=== PATIENT | female | born 2000 | race Caucasian/White ===

== ENCOUNTER 2023-09-30 12:41 | Emergency (ER) | payer BC, SELFPAY ==
[2023-09-30 12:42] VITALS: BP 130/90
--- NOTE | 2023-09-30 13:13 | ED.GENMED ---
History of Present Illness
General
Chief Complaint: Musculo-Skeletal Complaint
Source: patient
Exam Limitations: none
Time Seen by Provider: 09/30/23 13:09
Travel History
Have you had any contact with someone who has COVID-19?: No
Do you have any symptoms of coronavirus? Fever > 100 degrees, chills, cough, shortness of breath, sore throat, loss of taste or smell, muscle aches, or headache?: No
History of Present Illness
History of Present Illness:
See MDM
Past History
Past History
ED Past Medical History: None
ED Past Surgical History: None and Orthopedic
Social History
Tobacco: Non-smoker
Alcohol: None
Phy Exam
Physical Exam
Physical Exam:
See MDM
Course
Orders/Labs/Results
Orders:
Orders
09/30/23 12:46
Ankle, Right 3 view CR [CR Ankle - Right Min 3 Views *] Urgent
Comment:
Reason For Exam: injury
09/30/23 12:47
Foot, Right 3 View [CR Foot - Right Min 3 Views] Urgent
Comment:
Reason For Exam: injury
09/30/23 13:12
Acetaminophen [Tylenol] 650 mg PO NOW STA
Vital Signs
Initial and Last Documented VS:
Initial Vital Signs
Temp Pulse Resp BP Pulse Ox
98 F 93 16 130/90 98
09/30/23 12:42 09/30/23 12:42 09/30/23 12:42 09/30/23 12:42 09/30/23 12:42
Last Documented Vital Signs
Temp Pulse Resp BP Pulse Ox
98 F 93 16 130/90 98
09/30/23 12:42 09/30/23 12:42 09/30/23 12:42 09/30/23 12:42 09/30/23 12:42
MDM/Problems Addressed
Differential Diagnosis Includes:
HPI and MDM Narrative:
23-year-old female presenting with right ankle and foot pain. Patient is a teacher at a school. Child was about to fall off the monkey bars and she reached and grabbed her and she twisted her ankle while doing so. She believes she heard a pop.
She is having trouble weightbearing
Given the pain to lateral malleolus and base of fifth metatarsal, will obtain x-rays
Physical exam
General: Well appearing and non-toxic
HEENT: protecting airway
Neck: appears supple
CV: No evidence of cyanosis
Resp: No accessory muscle use
Abd: Non-distended
Extremities: Swelling and tenderness to right lateral malleolus. Tenderness to base of fifth metatarsal. Distal extremity neurovascular intact
Neuro: alert
Psych: Normal affect
Skin: Intact
Problems Addressed including Acute and Chronic Conditions affecting care:
1. Foot and ankle injury
Acuity: acute
Prognosis: stable
Details: Will obtain x-rays to rule out fracture. She took Motrin prior to arrival. Will give Tylenol
Updates
No obvious fracture on x-ray. Will give Roger wrap and crutches and discussed follow-up with podiatry if symptoms persist
Differential Diagnosis (but not limited to): Base of fifth metatarsal fracture, Ankle sprain, avulsion fracture
Testing considered: Tib/fib x-ray
Drug therapy (if applicable): OTC meds, please see d/c instruction regarding Rx drugs
Amount and/or Complexity of Data Reviewed
Clinical info obtained from: Patient
External data reviewed: N/A
Labs I independently reviewed (but not limited to): N/A
Radiology: X-ray independently reviewed: Ankle and foot x-ray negative for fracture
Pulse Ox: not hypoxic
EKG independently reviewed: N/A
Clinical Cytogeneticist: N/A
Critical Care: N/A
Risk of Complication:
Social Determinants of health: Good social support
Discussed with other providers: N/A
Escalation of Care includes Admit/Obs: After being observed in the Emergency Department, pt stable for discharge.
Occasional wrong word or 'sound a like' substitutions may have occurred due to the inherent limitations of voice recognition software. Read the chart carefully and recognize, using context, where substitutions have occurred.
*Critical Care Note
Total Time (30-74mins, 75-104mins- exclusive of procedures): Not Applicable
ED Attending Note
-
Portions of this chart may have been created with voice recognition software.� Occasional wrong word or��sound alike� substitutions may have occurred due to the inherent limitations of voice recognition software.
Discharge Plan
Departure
Patient Disposition: Home (Routine Discharge)
Date of Disposition: 09/30/23
Time of Disposition: 14:01
Patient with high blood pressure during this ER visit?: Yes
Discharge Problem:
Right ankle sprain
Instructions: Ankle Sprain ED, BLOOD PRESSURE
Prescriptions:
No Action
prednisone 20 mg tablet
40 mg PO DAILY Qty: 6 0RF
fluticasone propionate [24 Hour Allergy Relief] 50 mcg/actuation spray,suspension
2 spray intranasal DAILY Qty: 16 0RF
Referrals:
Alf Victor DPM [Active] -
Karan Regan CRNP [Family Provider] -
Activity Restrictions/Additional Instructions:
Please use the crutches for comfort. If pain is improving, you can start weightbearing. If symptoms persist, please make a call to see the load test mechanic.
Interventions
Interventions:
ED-Musculoskeletal Assessment Last Done: 09/30/23 12:57
Discharge Date and Time
Print Language: TOGOLESE
[2023-09-30] MEDS: TYLENOL 650 MG PO (13:31)
== END 2023-09-30 14:22 | disposition home or self-care (01) ==
LOC: EMR 12:41
PROVIDERS: EMERGENCY PHYSICIAN Student in an Organized Health Care Education/Training Program; FAMILY PHYSICIAN Nurse Practitioner Family
DX: S93.401A Sprain of unspecified ligament of right ankle, initial encounter (principal); X50.1XXA Overexertion from prolonged static or awkward postures, initial encounter; R03.0 Elevated blood-pressure reading, without diagnosis of hypertension
CPT/HCPCS: 99283; 73610; 73630